=== PATIENT | male | born 1995 | race Caucasian/White ===

== ENCOUNTER 2021-01-05 02:30 | Inpatient (IN) | payer MEDICAID ==
[~2021-01-05] VITALS: Ht 185.4 cm; Wt 79.4 kg
[2021-01-05 03:45] VITALS: BP 106/63
[2021-01-05] MEDS ORDERED: INFLUENZA VIRUS VACCINE QVS 2021-22 (6MO+)/PF 60 MCG/0.5 ML SYRINGE IM. ONE (05:30)
[2021-01-05] MEDS ORDERED: PETROLATUM,WHITE 28 GM JELLY TP PRN (07:00)
[2021-01-05] MEDS ORDERED: BENZOCAINE/MENTHOL LOZENGE PO PRN (07:00)
[2021-01-05] MEDS ORDERED: MAG HYDROX/AL HYDROX/SIMETH ES 30 ML SUSPENSION UDCUP PO PRN (07:00)
[2021-01-05] MEDS ORDERED: LOPERAMIDE HCL 2 MG CAPSULE PO PRN (07:00)
[2021-01-05] MEDS ORDERED: ONDANSETRON HCL 4 MG TABLET PO PRN (07:00)
[2021-01-05] MEDS ORDERED: ACETAMINOPHEN 325 MG TABLET PO PRN (07:00)
[2021-01-05] MEDS ORDERED: DOCUSATE SODIUM 100 MG CAPSULE PO PRN (07:00)
[2021-01-05] MEDS ORDERED: IBUPROFEN 600 MG TABLET PO PRN (07:00)
[2021-01-05] MEDS ORDERED: MAGNESIUM HYDROXIDE SUSPENSION 30 ML UDCUP PO PRN (07:00)
[2021-01-05] MEDS ORDERED: ALBUTEROL SULFATE HFA 90 MCG/PUFF 8 GM INHALER IH PRN (07:00)
[2021-01-05] MEDS ORDERED: CloNIDine HCL 0.1 MG TABLET PO PRN (07:00)
[2021-01-05] MEDS ORDERED: BACITRACIN 28 GM OINTMENT TP PRN (07:00)
[2021-01-05] MEDS ORDERED: OMEPRAZOLE 20 MG CAPSULE PO PRN (07:00)
[2021-01-05 08:26] VITALS: BP 107/68
[2021-01-05] MEDS ORDERED: RISP4TAB73 PO (09:32)
[2021-01-05] MEDS ORDERED: LITH300T PO (09:32)
[2021-01-05] MEDS: LITHIUM CARBONATE 300 MG CAPSULE PO SCH (15:52)
[2021-01-05] MEDS: RisperiDONE 3 MG TABLET PO SCH (15:52)
[2021-01-05 16:15] VITALS: BP 100/69
[2021-01-05] MEDS: LORazepam 2 MG TABLET PO PRN (16:58)
[2021-01-06 00:54] VITALS: BP 105/63
[2021-01-06 08:03] LABS: BASOPHILS % (AUTO) 0.2 % (0.0-2.0); EOSINOPHILS % (AUTO) 2.4 % (1.0-6.0); HEMATOCRIT 45.2 % (41-53); HEMOGLOBIN 15.2 g/dL (13.5-17.5); LYMPHOCYTES # (AUTO) 1.3 K/uL (1.0-4.8); LYMPHOCYTES % (AUTO) 26.5 % (22.0-44.0); MEAN CORPUSCULAR HEMOGLOBIN 31.1 pg (26.0-34.0); MEAN CORPUSCULAR HGB CONC 33.7 G/dL (31.0-37.0); MEAN CORPUSCULAR VOLUME 92 fL (80-100); MONOCYTES # (AUTO) 0.5 K/uL (0.1-1.0); MONOCYTES % (AUTO) 9.2 % (2.0-9.0); NEUTROPHILS # (AUTO) 3.1 K/uL (1.8-7.7); NEUTROPHILS % (AUTO) 61.7 % (40.0-70.0); PLATELET COUNT (AUTO) 144 K/uL (150-450); RED BLOOD CELL COUNT(AUTO) 4.89 MIL/uL (4.50-5.90); RED CELL DISTRIBUTION WIDTH 12.4 % (11.5-14.5)
[2021-01-06 08:10] LABS: HEMOGLOBIN A1C 4.9 % (3.8-5.6)
[2021-01-06 08:31] LABS: ALANINE AMINOTRANSFERASE 59 U/L (12-78); ALBUMIN 3.4 g/dL (3.4-5.0); ALKALINE PHOSPHATASE 67 U/L (46-116); ANION GAP 3 mmol/L (8-16); ASPARTATE AMINOTRANSFERASE 49 U/L (15-37); BILIRUBIN,TOTAL 0.9 mg/dL (0.1-1.0); CALCIUM, TOTAL 8.5 mg/dL (8.8-10.5); CARBON DIOXIDE 29 mmol/L (22-29); CHLORIDE 109 mmol/L (98-107); CHOL/HDL RATIO 2.5 (4.2-7.3); CHOLESTEROL 102 mg/dL (131-200); CREATININE 0.75 mg/dL (0.60-1.30); FREE T4 (FREE THYROXINE) 1.06 ng/dL (0.76-1.46); GLOMERULAR FILTR. RATE CALC > 60 mL/min (>60); GLUCOSE,RANDOM 80 mg/dL (70-110); HDL CHOLESTEROL 41 mg/dL (40-60); LDL CHOL (CALC.) 51 mg/dL (0-130); PHOSPHORUS 3.6 mg/dL (2.5-4.9); POTASSIUM 4.1 mmol/L (3.5-5.1); SODIUM SERUM 141 mmol/L (136-145); TOTAL PROTEIN, SERUM 6.7 g/dL (6.4-8.2); TRIGLYCERIDES 50 mg/dL (15-150); UREA NITROGEN, BLOOD 14 mg/dL (7-18)
[2021-01-06 08:43] VITALS: BP 102/69
[2021-01-06] MEDS: RisperiDONE 3 MG TABLET PO SCH ×2 (09:28→16:17)
[2021-01-06] MEDS: LITHIUM CARBONATE 300 MG CAPSULE PO SCH ×2 (09:28→16:16)
[2021-01-06 16:17] VITALS: BP 98/62
[2021-01-06] MEDS: LORazepam 2 MG TABLET PO PRN (16:31)
[2021-01-07 02:44] VITALS: BP 109/62
[2021-01-07 08:38] VITALS: BP 115/58
[2021-01-07] MEDS: RisperiDONE 3 MG TABLET PO SCH ×2 (08:44→16:19)
[2021-01-07] MEDS: LITHIUM CARBONATE 300 MG CAPSULE PO SCH ×2 (08:44→16:19)
[2021-01-07 16:31] VITALS: BP 113/62
[2021-01-07] MEDS: DiphenhydrAMINE HCL 25 MG CAPSULE PO PRN (16:31)
[2021-01-08 00:56] VITALS: BP 105/62
[2021-01-08 08:27] VITALS: BP 125/70
[2021-01-08] MEDS: LITHIUM CARBONATE 300 MG CAPSULE PO SCH ×2 (08:31→16:31)
[2021-01-08] MEDS: RisperiDONE 3 MG TABLET PO SCH ×2 (08:31→16:31)
[2021-01-08] MEDS: DiphenhydrAMINE HCL 25 MG CAPSULE PO PRN ×2 (10:55→19:41)
[2021-01-08 16:27] VITALS: BP 110/63
[2021-01-08] MEDS: ZOLPIDEM TARTRATE 10 MG TABLET PO PRN (20:34)
[2021-01-09 01:10] VITALS: BP 108/62
[2021-01-09 08:10] LABS: COVID AG,FIA SOURCE NASOPHARYNGEAL
[2021-01-09 08:17] VITALS: BP 116/60
[2021-01-09] MEDS: LITHIUM CARBONATE 300 MG CAPSULE PO SCH ×2 (09:36→16:39)
[2021-01-09] MEDS: RisperiDONE 3 MG TABLET PO SCH ×2 (09:36→16:39)
[2021-01-09] MEDS: DiphenhydrAMINE HCL 25 MG CAPSULE PO PRN ×2 (10:48→19:38)
[2021-01-09 16:25] VITALS: BP 114/64
[2021-01-09] MEDS: FLUTICASONE PROPIONATE 50 MCG/SPRAY 16 GM NASAL SPRAY NASAL PRN (21:15)
[2021-01-10 05:19] VITALS: BP 124/74
[2021-01-10 08:37] VITALS: BP 100/60
[2021-01-10] MEDS: RisperiDONE 3 MG TABLET PO SCH ×2 (08:44→16:09)
[2021-01-10] MEDS: LITHIUM CARBONATE 300 MG CAPSULE PO SCH ×2 (08:44→16:09)
[2021-01-10] MEDS: FLUTICASONE PROPIONATE 50 MCG/SPRAY 16 GM NASAL SPRAY NASAL PRN (11:11)
[2021-01-10 16:26] VITALS: BP 115/68
[2021-01-10] MEDS: DiphenhydrAMINE HCL 25 MG CAPSULE PO PRN (18:35)
[2021-01-10] MEDS: HALOPERIDOL 5 MG TABLET PO PRN (19:34)
[2021-01-11 08:26] VITALS: BP 111/63
[2021-01-11] MEDS: LITHIUM CARBONATE 300 MG CAPSULE PO SCH ×2 (09:00→16:11)
[2021-01-11] MEDS: RisperiDONE 3 MG TABLET PO SCH ×2 (09:00→16:11)
[2021-01-11 16:24] VITALS: BP 108/60
[2021-01-12 00:47] VITALS: BP 115/68
[2021-01-12 08:44] VITALS: BP 104/60
[2021-01-12] MEDS: RisperiDONE 3 MG TABLET PO SCH ×2 (09:15→16:34)
[2021-01-12] MEDS: LITHIUM CARBONATE 300 MG CAPSULE PO SCH ×2 (09:15→16:34)
[2021-01-12] MEDS: DiphenhydrAMINE HCL 25 MG CAPSULE PO PRN (14:47)
[2021-01-12 16:26] VITALS: BP 112/61
[2021-01-12] MEDS: ZOLPIDEM TARTRATE 10 MG TABLET PO PRN (22:13)
[2021-01-12] MEDS: FLUTICASONE PROPIONATE 50 MCG/SPRAY 16 GM NASAL SPRAY NASAL PRN (22:13)
[2021-01-13 00:40] VITALS: BP 110/69
[2021-01-13] MEDS: LITHIUM CARBONATE 300 MG CAPSULE PO SCH ×2 (08:13→16:14)
[2021-01-13] MEDS: RisperiDONE 3 MG TABLET PO SCH ×2 (08:13→16:14)
[2021-01-13 08:24] VITALS: BP 116/65
[2021-01-13 16:19] VITALS: BP 118/64
[2021-01-13] MEDS: ZOLPIDEM TARTRATE 10 MG TABLET PO PRN (20:57)
[2021-01-14 05:12] VITALS: BP 110/66
[2021-01-14 07:31] LABS: COVID AG,FIA SOURCE NASAL SWAB
[2021-01-14 08:17] VITALS: BP 118/64
[2021-01-14] MEDS: RisperiDONE 3 MG TABLET PO SCH ×2 (09:28→16:38)
[2021-01-14] MEDS: LITHIUM CARBONATE 300 MG CAPSULE PO SCH ×2 (09:28→16:38)
[2021-01-14 16:22] VITALS: BP 113/62
[2021-01-14] MEDS: ZOLPIDEM TARTRATE 10 MG TABLET PO PRN (20:41)
[2021-01-14] MEDS: DiphenhydrAMINE HCL 25 MG CAPSULE PO PRN (21:28)
[2021-01-15 06:09] VITALS: BP 121/73
[2021-01-15 08:25] VITALS: BP 128/65
[2021-01-15] MEDS: LITHIUM CARBONATE 300 MG CAPSULE PO SCH ×2 (09:01→16:43)
[2021-01-15] MEDS: RisperiDONE 3 MG TABLET PO SCH ×2 (09:01→16:43)
[2021-01-15 17:48] VITALS: BP 126/78
[2021-01-16 00:43] VITALS: BP 112/66
[2021-01-16 08:36] VITALS: BP 116/70
[2021-01-16] MEDS: LITHIUM CARBONATE 300 MG CAPSULE PO SCH ×2 (09:02→16:34)
[2021-01-16] MEDS: RisperiDONE 3 MG TABLET PO SCH ×2 (09:02→16:34)
[2021-01-16 16:25] VITALS: BP 110/68
[2021-01-16] MEDS: DiphenhydrAMINE HCL 25 MG CAPSULE PO PRN (20:38)
[2021-01-17 01:26] VITALS: BP 119/72
[2021-01-17 08:31] VITALS: BP 108/62
[2021-01-17] MEDS: RisperiDONE 3 MG TABLET PO SCH ×2 (09:06→16:29)
[2021-01-17] MEDS: LITHIUM CARBONATE 300 MG CAPSULE PO SCH ×2 (09:10→16:29)
[2021-01-17 16:34] VITALS: BP 112/73
[2021-01-17] MEDS: DiphenhydrAMINE HCL 25 MG CAPSULE PO PRN (20:59)
[2021-01-18 06:18] VITALS: BP 121/60
[2021-01-18 08:43] VITALS: BP 109/60
[2021-01-18] MEDS: LITHIUM CARBONATE 300 MG CAPSULE PO SCH ×2 (09:14→16:08)
[2021-01-18] MEDS: RisperiDONE 3 MG TABLET PO SCH ×2 (09:14→16:08)
[2021-01-18 16:22] VITALS: BP 120/61
[2021-01-18] MEDS: DiphenhydrAMINE HCL 25 MG CAPSULE PO PRN (21:03)
[2021-01-18] MEDS: HALOPERIDOL 5 MG TABLET PO PRN (23:15)
[2021-01-19 01:40] VITALS: BP 110/62
[2021-01-19 08:40] VITALS: BP 114/67
[2021-01-19] MEDS: LITHIUM CARBONATE 300 MG CAPSULE PO SCH ×2 (09:37→16:34)
[2021-01-19] MEDS: RisperiDONE 3 MG TABLET PO SCH ×2 (09:37→16:34)
[2021-01-19 16:23] VITALS: BP 111/62
[2021-01-19] MEDS: MELATONIN 5 MG TABLET PO SCH (20:07)
[2021-01-19] MEDS: DiphenhydrAMINE HCL 25 MG CAPSULE PO PRN (20:08)
[2021-01-20 01:17] VITALS: BP 112/70
[2021-01-20 08:16] VITALS: BP 102/56
[2021-01-20] MEDS: RisperiDONE 3 MG TABLET PO SCH ×2 (09:07→16:34)
[2021-01-20] MEDS: LITHIUM CARBONATE 300 MG CAPSULE PO SCH ×2 (09:07→16:34)
[2021-01-20 16:29] VITALS: BP 113/67
[2021-01-20] MEDS: MELATONIN 5 MG TABLET PO SCH (20:11)
[2021-01-21 01:51] VITALS: BP 103/77
[2021-01-21 08:10] LABS: COVID AG,FIA SOURCE NASOPHARYNGEAL
[2021-01-21 08:18] VITALS: BP 112/72
[2021-01-21] MEDS: LITHIUM CARBONATE 300 MG CAPSULE PO SCH ×2 (08:32→16:10)
[2021-01-21] MEDS: RisperiDONE 3 MG TABLET PO SCH ×2 (08:32→16:10)
[2021-01-21 16:36] VITALS: BP 133/77
[2021-01-21] MEDS: DiphenhydrAMINE HCL 25 MG CAPSULE PO PRN (20:52)
[2021-01-21] MEDS: MELATONIN 5 MG TABLET PO SCH (20:52)
[2021-01-22 01:40] VITALS: BP 114/65
[2021-01-22] MEDS: LITHIUM CARBONATE 300 MG CAPSULE PO SCH ×2 (08:00→16:30)
[2021-01-22] MEDS: RisperiDONE 3 MG TABLET PO SCH ×2 (08:00→16:30)
[2021-01-22 08:45] VITALS: BP 135/81
[2021-01-22 16:37] VITALS: BP 126/79
[2021-01-22] MEDS: MELATONIN 5 MG TABLET PO SCH (20:19)
[2021-01-22] MEDS: DiphenhydrAMINE HCL 25 MG CAPSULE PO PRN (20:19)
[2021-01-23 01:12] VITALS: BP 122/77
[2021-01-23] MEDS: RisperiDONE 3 MG TABLET PO SCH ×2 (08:42→16:49)
[2021-01-23] MEDS: LITHIUM CARBONATE 300 MG CAPSULE PO SCH ×2 (08:42→16:49)
[2021-01-23 09:40] VITALS: BP 106/67
[2021-01-23] MEDS: FLUTICASONE PROPIONATE 50 MCG/SPRAY 16 GM NASAL SPRAY NASAL PRN (15:38)
[2021-01-23 16:23] VITALS: BP 107/68
[2021-01-23] MEDS: DiphenhydrAMINE HCL 25 MG CAPSULE PO PRN (20:40)
[2021-01-23] MEDS: MELATONIN 5 MG TABLET PO SCH (20:51)
[2021-01-24 08:17] VITALS: BP 116/73
[2021-01-24] MEDS: RisperiDONE 3 MG TABLET PO SCH ×2 (10:11→16:31)
[2021-01-24] MEDS: LITHIUM CARBONATE 300 MG CAPSULE PO SCH ×2 (10:11→16:31)
[2021-01-24 16:20] VITALS: BP 116/68
[2021-01-24] MEDS: DiphenhydrAMINE HCL 25 MG CAPSULE PO PRN (20:35)
[2021-01-24] MEDS: MELATONIN 5 MG TABLET PO SCH (20:35)
[2021-01-25 02:22] VITALS: BP 108/66
[2021-01-25 08:50] VITALS: BP 102/60
[2021-01-25] MEDS: RisperiDONE 3 MG TABLET PO SCH ×2 (09:39→16:43)
[2021-01-25] MEDS: LITHIUM CARBONATE 300 MG CAPSULE PO SCH ×2 (09:39→16:43)
[2021-01-25 16:29] VITALS: BP 123/66
[2021-01-25] MEDS: DiphenhydrAMINE HCL 25 MG CAPSULE PO PRN (20:49)
[2021-01-25] MEDS: MELATONIN 5 MG TABLET PO SCH (20:49)
[2021-01-26 06:03] VITALS: BP 121/68
[2021-01-26 08:45] VITALS: BP 102/63
[2021-01-26] MEDS: RisperiDONE 3 MG TABLET PO SCH ×2 (09:00→16:29)
[2021-01-26] MEDS: LITHIUM CARBONATE 300 MG CAPSULE PO SCH ×2 (09:00→16:29)
[2021-01-26 16:24] VITALS: BP 106/63
[2021-01-26] MEDS: DiphenhydrAMINE HCL 25 MG CAPSULE PO PRN (20:24)
[2021-01-26] MEDS: MELATONIN 5 MG TABLET PO SCH (20:25)
[2021-01-27 00:48] VITALS: BP 126/74
[2021-01-27] MEDS: RisperiDONE 3 MG TABLET PO SCH ×2 (08:52→16:33)
[2021-01-27] MEDS: LITHIUM CARBONATE 300 MG CAPSULE PO SCH ×2 (08:52→16:33)
[2021-01-27 09:14] VITALS: BP 100/51
[2021-01-27 16:23] VITALS: BP 116/66
[2021-01-27] MEDS: MELATONIN 5 MG TABLET PO SCH (20:05)
[2021-01-27] MEDS: DiphenhydrAMINE HCL 25 MG CAPSULE PO PRN (20:05)
[2021-01-28 01:44] VITALS: BP 109/62
[2021-01-28 07:46] LABS: COVID AG,FIA SOURCE NASOPHARYNGEAL
[2021-01-28 08:41] VITALS: BP 111/74
[2021-01-28] MEDS: RisperiDONE 3 MG TABLET PO SCH (08:55)
[2021-01-28] MEDS: LITHIUM CARBONATE 300 MG CAPSULE PO SCH (08:55)
[2021-01-28] MEDS ORDERED: LITH300C3 PO (11:45)
[2021-01-28] MEDS ORDERED: RISP3TAB35 PO (11:46)
[2021-01-28] MEDS ORDERED: MELA5TAB40 PO (11:46)
== END 2021-01-28 13:00 | disposition home or self-care (01) | DRG 753 ==
LOC: B2S 02:30
PROVIDERS: ADMIT Psychiatry & Neurology Psychiatry; ATTEND Psychiatry & Neurology Psychiatry
DX: F31.9 Bipolar disorder, unspecified (principal); F25.9 Schizoaffective disorder, unspecified; G47.00 Insomnia, unspecified; K59.00 Constipation, unspecified; F41.9 Anxiety disorder, unspecified; Z20.822 Contact with and (suspected) exposure to COVID-19; Z71.6 Tobacco abuse counseling; F29 Unspecified psychosis not due to a substance or known physiological condition; F17.200 Nicotine dependence, unspecified, uncomplicated; Z53.29 Procedure and treatment not carried out because of patient's decision for other reasons
CPT/HCPCS: 80053; 80061; 80178; 83036; 83735; 84100; 84439; 84443; 85025; Q9967